=== PATIENT | female | born 1955 | race Caucasian/White ===

== ENCOUNTER 2017-01-03 06:09 | Day surgery (SDC) | payer OTHER ==
[2017-01-03] VITALS (9 sets, daily range): BP systolic 107–133; BP diastolic 50–58; PULSE 79–105; RESP 11–16; O2SAT 94–100
[~2017-01-03] VITALS: Ht 162.6 cm; Wt 87.4 kg
[~2017-01-03 06:09] MED LIST: ACYC400T2 PO; ALBU8.5H2 INHALATION; AMT25T PO; ATRINH INH; CYCL10TA9 PO; FLUO20CA25 PO; GABA-502 PO; HYDR-4003 PO; IPRA3AMP IH; LISI40TA PO; Lactated Ringer's 1,000 ML IV SCH; MELO-259 PO; NPR500T PO; OMEP40CA36 PO; PRAM0.5T3 PO; TRAM50TA2 PO
[2017-01-03] MEDS ORDERED: Propofol 10,000 mCg/mL 20 mL Inj ONE (06:10)
[2017-01-03] MEDS ORDERED: Dexamethasone 4 mg/mL Inj ONE (06:10)
[2017-01-03] MEDS ORDERED: Ondansetron 2 mg/mL 2 mL Inj ONE (06:10)
[2017-01-03] MEDS ORDERED: Succinylcholine Chloride 20 mg/mL 5 mL Inj ONE (06:10)
[2017-01-03] MEDS ORDERED: fentaNYL-PF 50 mCg/mL 2 mL Inj ONE (06:10)
[2017-01-03] MEDS ORDERED: Rocuronium 10 mg/mL 5 mL Inj ONE (06:10)
[2017-01-03] MEDS ORDERED: HYDROmorphone 2 mg/mL Inj ONE (06:10)
[2017-01-03] MEDS ORDERED: Lactated Ringer's 1,000 ML IV ONE (07:10)
[2017-01-03] MEDS ORDERED: Lidocaine 1%-Epi 1:100,000 20 mL Inj INFILTRATE ONE (07:11)
[2017-01-03] MEDS ORDERED: HYDROcodone-APAP 7.5-325 mg Tablet PO PRN ×3 (07:25→09:20)
--- NOTE | 2017-01-03 07:26 | PCM.HPANE ---
Patient Data Surgeon Admitting Provider: Attending Provider:Hero Ware DO Primary Care Physician:Elmer Brennan MD Other Provider: Reason for Visit Left Thumb Metacarpal Arthritis And Hyperextension Ht/WT & BMI Height (Feet): 5 Height (Inches): 6 Weight (Kilograms): 87.18 Body Mass Index 30.00 Allergies Coded Allergies: No Known Allergies (Unverified , 07/31/16) Past Anesthesia History Anesthesia History: Denies:: Abnormal Airway, Anesthesia Reactions, Difficult Intubation, Fam Anesthesia Reaction, Fam Malignant Hypertherm, Malignant Hyperthermia Diabetes History Hx Diabetes?: No MRSA MRSA: No Medications Hypertension Medication: No Home Meds Incl Beta Hailey: No Reported Medications Tramadol 50 Mg Msruae48-252 Mg PO Q8H PRN For Pain Ref 0 12/31/16 Albuterol HFA (Proair HFA)8.5 Gm Hfa.aer.ad2 Puffs INHALATION Q4H PRN For Shortness of Breath #1 INHALER 12/31/16 Omeprazole 40 Mg Capsule.dr40 Mg PO DAILY Ref 0 12/31/16 Naproxen 500 Mg Fqc785 Mg PO BID PRN For Pain Ref 0 12/31/16 Pramipexole Dihydrochloride (Mirapex)0.5 Mg Tablet0.25-0.5 Mg PO HS 12/31/16 Meloxicam 7.5 Mg Tablet7.5 Mg PO BID 30 Days Ref 0 12/31/16 Lisinopril 40 Mg Nlnafu75 Mg PO DAILY 30 Days Ref 0 12/31/16 Ipratropium/Albuterol Sulfate (Iprat-Albut 0.5-3(2.5) mg/3 mL Inhalant Soln)3 Ml Ampul.neb3 Ml IH Q6 Ref 0 12/31/16 Hydrocodone-Acetaminophen 5-325 mg 1 Each Tablet1 Tablet PO TID PRN For Pain Ref 0 12/31/16 Gabapentin 300 Mg Capsule1,200 Mg PO TID Ref 0 12/31/16 Fluoxetine 20 Mg Cvzmdvf44 Mg PO DAILY Ref 0 12/31/16 Cyclobenzaprine 10 Mg Mbwseq82 Mg PO DAILY Ref 0 12/31/16 Ipratropium [place] (Atrovent HFA)200 Puff/12.9 Gm Inhaler2 Puff INH QID #1 INH Ref 0 12/31/16 Amitriptyline 25 Mg Ljt02-26 Mg PO HS Ref 0 12/31/16 Acyclovir 400 Mg Ennnfj301 Mg PO BID Ref 0 12/31/16 Discontinued Reported Medications Tramadol 50 Mg Thjurk41-320 Mg PO Q8H PRN For Pain Ref 0 07/31/16 Albuterol HFA (Proair HFA)8.5 Gm Hfa.aer.ad2 Puffs INHALATION Q4H PRN PRN #1 INHALER 07/31/16 Omeprazole 40 Mg Capsule.dr40 Mg PO DAILY Ref 0 07/31/16 Naproxen 500 Mg Miw761 Mg PO BID PRN For Pain Ref 0 07/31/16 Pramipexole Dihydrochloride (Mirapex)0.25 Mg Tablet0.25-0.5 Mg PO QPM 07/31/16 Meloxicam 7.5 Mg Tablet7.5 Mg PO BID 30 Days Ref 0 07/31/16 Lisinopril 20 Mg Mcpxxl59 Mg PO DAILY 30 Days Ref 0 07/31/16 Ipratropium/Albuterol Sulfate (Iprat-Albut 0.5-3(2.5) mg/3 mL Inhalant Soln)3 Ml Ampul.neb3 Ml IH Q6 Ref 0 07/31/16 Hydrocodone-Acetaminophen 5-325 mg 1 Each Tablet1 Tablet PO TID PRN For Pain Ref 0 07/31/16 Fluoxetine 20 Mg Oatpgmh54 Mg PO DAILY Ref 0 07/31/16 Cyclobenzaprine 10 Mg Ramvbk71 Mg PO TID PRN Spasm 07/31/16 Ipratropium [place] (Atrovent HFA)200 Puff/12.9 Gm Inhaler2 Puff INH QID #1 INH Ref 0 07/31/16 Amitriptyline 25 Mg Krr73-81 Mg PO HS Ref 0 07/31/16 Acyclovir 400 Mg Hinvxn417 Mg PO BID Ref 0 07/31/16 History History of ENT Problems?: No HEENT History: Denies:: Abnormal Airway Cataracts Difficult Intubation Dysphagia Glaucoma Hearing Problem Sinus Problem Teeth Condition: Missing Teeth Hx of Heart Problems?: Yes Cardiovascular History: Denies:: AICD Abdominal Aortic Aneurism Cardiac Surgery Heart Murmur Hypertension Irregular Heartbeat Pacemaker Hx of Respiratory Problem?: Yes Respiratory History: Positive for:: COPD Use of C-PAP Machine Use of Inhalers / NEBS Denies:: Asthma Emphysema Oxygen Administration Pneumonia Tuberculosis Hx Neurologic Problems?: Yes Neurological History: Positive for:: Dizziness (when standing up, ) Denies:: CVA Headaches Multiple Sclerosis Parkinson's Disease Seizures TIA Hx of GI Problems?: Yes Gastrointestinal History: Positive for:: Gastroesphageal Reflux (symptomatic) Heartburn Denies:: Cirrhosis Diverticulitis Gall Bladder Disease Gastrointestinal Bleeding Hepatitis Hiatal Hernia Liver Disease Rectal Bleeding Hx of Problems?: No Genitourinary History: Denies:: Kidney Stones Urinary Tract Infection Female Hx: Denies:: Currently (tubal ) Problems with Breasts? Skin History: Positive for:: History Skin Disorders? (bruises easily) Denies:: Pressure Ulcers Hx Musculoskeletal Problems?: Yes Musculoskeletal History: Positive for:: Fibromyalgia Musculoskeletal Trauma (left hand current admission problem, surgery here 2015) Osteoarthritis Denies:: Back Injury Hx of Psycho/Social Problems?: Yes Psycho Social History: Positive for:: Hx Depression Hx Surgeries?: Yes (tonsils, tubal, multiple hand surgery) Hx Any Other Health Problems?: Yes Other History: Denies:: Cancer Endocrine Disease Hospitalization Thyroid Disease History Blood Transfusions: Positive for:: Accept Blood Products? Denies:: Blood Transfusions Hx Diabetes: No Hx Alcohol Use: YesAlcoholic Drinks Per Day: rare- every few yearsHx Substance Use: NoHave You Smoked inLast 12 mo: No Stop/Bang S-Snoring: Do You Snore Loudly: Yes T-Tired: feel tired, fatigued: Yes O-Obsered: Observed not breath: No P-Blood Pressure: treated: Yes B- Body Mass Index > 35 kg/m2: No A- Age over 50: Yes N- Neck Large Circumference: No G- Gender Male: No IWL Total Score: 4 WIL Risk Assessment: High Risk, =/>3 Yes Risk Assessment Category Category 1A: Patient has history of documented sleep apnea, and HAS NOT received any narcotic, sedative or anesthesia administration during this stay. Category 1B: Patient has history of documented sleep apnea, and HAS received any narcotic , sedative or anesthesia administration during this stay Category 2: Patient has SUSPECTED Obstructive Sleep Apnea, and HAS received any narcotic , sedative or anesthesia administration during this stay. Category 3: Patient has SUSPECTED Obstructive Sleep Apnea and HAS NOT received narcotic, sedative or anesthesia administration during this stay. Category 4: Outpatient in Procedural Areas with known sleep apnea or who screen positive for High Risk via the STOP/BANG questionnaire. Exam Exam General Appearance: Alert, Oriented X3, Cooperative, No Acute Distress HEENT/AIRWAY: MP 1 Lungs: Clear to Auscultation, Normal Air Movement Heart: Exam Unremarkable, Regular Rate/Rhythm, No Murmurs/Rubs/Gallops Plan Impression Patient chart reviewed, patient interviewed and anesthestic plan with risks, benefits, and alternatives discussed, and informed consent obtained. NPO Status: 08/01@2130 ASA Physical Status: ASA3 Severe Disease Anesthetic Plan: GA Bene/Risks/Altern/Consents: Yes HP Complete Prior to Induction: Yes Bernard Soto MD Jan 03, 2017 07:02
[2017-01-03] MEDS ORDERED: Lactated Ringer's 500 ML IV PRN (07:41)
[2017-01-03] MEDS ORDERED: Lactated Ringer's 1,000 ML IV SCH (07:41)
[2017-01-03] MEDS ORDERED: EPHEDrine Sulfate 50 mg/mL Inj IVPUSH PRN (07:45)
[2017-01-03] MEDS ORDERED: hydrALAZINE 20 mg/mL Inj IVPUSH PRN (07:45)
[2017-01-03] MEDS ORDERED: Ondansetron 2 mg/mL 2 mL Inj IVPUSH PRN (07:45)
[2017-01-03] MEDS ORDERED: Labetalol 5 mg/mL 4 mL Inj IV PRN (07:45)
[2017-01-03] MEDS ORDERED: HYDROmorphone 1 mg/mL Inj IVPUSH PRN (07:45)
[2017-01-03] MEDS ORDERED: MetoCLOpramide 5 mg/mL 2 mL Inj IVPUSH PRN (07:45)
[2017-01-03] MEDS ORDERED: Atropine 0.4 mg/mL Inj IVPUSH PRN (07:45)
[2017-01-03] MEDS ORDERED: fentaNYL-PF 50 mCg/mL 2 mL Inj IVPUSH PRN (07:45)
[2017-01-03] MEDS ORDERED: Phenylephrine 10,000 mCg/mL Inj IVPUSH PRN (07:45)
[2017-01-03] MEDS: CeFAZolin Inj 2 GM in IV Premix 1 EACH IV ONE ×2 (08:06→08:07)
--- NOTE | 2017-01-03 10:20 | PCM.ANEP2 ---
Post Anesthesia Evaluation ASA/CMS Post Anesthesia VS in Patient's Normal Range?: Yes Resp Stable; Airway Patent?: Yes CV Function & Hydration Stable: Yes Mental Status Recovered?: Yes Pain control Satisfactory?: Yes N/V Control Satisfactory?: Yes Bernard Soto MD Jan 03, 2017 10:20
--- NOTE | 2017-01-03 10:20 | PCM.ANEP1 ---
Post Anesthesia Phase 1 PACU Phase 1 Assessment Vital Signs Vital Signs Date Time Temp Pulse Resp B/P Pulse Ox O2 Delivery O2 Flow Rate FiO2 01/03/17 10:10 36.3 79 14 107/51 95 Room Air 01/03/17 10:00 82 13 118/50 94 Room Air 01/03/17 09:55 36.2 89 16 114/52 99 Room Air 01/03/17 09:45 94 13 125/54 100 Nasal Cannula 2 01/03/17 09:35 100 15 126/55 97 Nasal Cannula 2 01/03/17 09:30 104 13 133/50 96 Nasal Cannula 2 01/03/17 09:25 105 13 133/56 96 Room Air 01/03/17 09:20 36.1 103 11 130/58 98 Simple Mask 8 01/03/17 07:09 36.0 85 16 125/56 97 Room Air 01/03/17 07:09 CPAP/BIPAP Anesthetic Administered: GA Level of Alertness: Awake, talking AREVALO's with Equal Strength: Yes Pain: No Nausea or Vomiting: No Oxygen Delivery: Simple Mask Lungs: Clear to Auscultation, Normal Air Movement Bernard Soto MD Jan 03, 2017 10:20
--- NOTE | 2017-01-03 11:03 | OP ---
[address] [address] OPERATIVE REPORT PATIENT: BLUE ARENAS : 1955 MR#: [id number] ADMIT: 01/03/2017 JOB ID: [id number] DATE OF SURGERY: 01/03/2017 PREOPERATIVE DIAGNOSIS(ES): Left thumb metacarpophalangeal instability with arthritis. POSTOPERATIVE DIAGNOSIS(ES): Left thumb metacarpophalangeal instability with arthritis. PROCEDURE: Left thumb metacarpophalangeal arthrodesis. SURGEON: Hero Ware D.O. ANESTHESIA: General. 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 She had failed conservative treatment and she underwent a first CMC arthroplasty with FCR tendon transfer and volar capsular dehiscence of the MCP joint. The patient to rehab from the CMC arthroplasty and had decreased pain to the CMC joint, but continued to have significant compensatory MCP hyperextension leading to further adduction the first metacarpal. This limited her rehab potential and with continued pain now mainly localized to the MCP joint, I discussed with the patient proceeding with a MCP fusion. She understood the risks include, but not limited to, neurovascular injury, tendon injury, infection, failure of fusion, stiffness, persistent pain which may require further intervention. The patient had all questions answered. Consent was signed and placed in the chart. PROCEDURE IN DETAIL: The patient was brought to the operative suite and placed supine on the operating table. Surgical time-out was performed. Everyone in the room was in agreement. After appropriate anesthesia was obtained, a left upper arm tourniquet was applied and the left upper extremity was prepped and draped in a sterile fashion. Left upper extremity was then exsanguinated and tourniquet inflated to 250 mmHg. A longitudinal incision was made centered overlying the dorsal aspect of the thumb metacarpophalangeal joint. The interval between the EPB and EPL was entered longitudinally and the capsule next incised. The joint was then hyperflexed to expose the base of the proximal phalanx as well as the first metacarpal head. A rongeur as well as a bur was utilized to debride the remaining cartilage surface from the joint and to contour a cup and cone configuration to the first MCP joint. Following removal of any osteophytes and cartilage, the thumb was placed into a position of about 15 degrees of flexion, 5 degrees of abduction and 5 degrees of pronation. A 0.045 K-wire was then placed in a transverse fashion across the proximal phalanx about 1 cm distal to the joint to create a hole for the 22-gauge steel wire. The K-wire was removed and a 22-gauge steel wire was then passed through the prepared hole. Next two 0.045-inch K-wires were advanced across the first metacarpal head into the proximal phalanx along its medullary canal. Two parallel K-wires were utilized. Both were 0.045 inch K-wires. The position of the K-wires were verified under fluoroscopy. The 22-gauge wire was then wrapped around the two 0.045 inch K-wires in a tension band configuration. The 22-gauge wire was tensioned and then cut short with the free end bent towards the bone to prevent any soft tissue irritation. The two 0.045-inch K-wires were then cut short just proud of the tension band wire proximally. Multiple views of fluoroscopy were utilized to verify acceptable position of the first MCP arthrodesis as well as appropriate position of the hardware. Copious irrigation was performed followed by closure of the overlying split between the EPB and EPL with 5-0 nylon and a 5-0 nylon closure for the skin. The patient was then placed in the well-padded, well-molded thumb spica splint. ESTIMATED BLOOD LOSS: Less than 1 cc. COMPLICATIONS: None. DISPOSITION: The patient tolerated the procedure well. Anesthesia was reversed. The patient was transferred back to recovery. IMPLANTS: Two 0.045 inch K-wires and a 22-gauge steel wire. POSTOPERATIVE PLAN: The patient will follow up in the office in two weeks. She will be transitioned either back into the previous thumb spica brace she had fashioned or will be sent back to therapy to have a new thumb spica brace fashioned in the appropriate position to provide some protection to the MCP arthrodesis.
== END 2017-01-03 23:59 | disposition home or self-care (01) ==
LOC: SAS 06:09
PROVIDERS: ATTEND Orthopaedic Surgery
PROC: 0RGV04Z Fusion of Left Metacarpophalangeal Joint with Internal Fixation Device, Open Approach (ICD-10-PCS; principal; 2017-01-03 08:00)
DX: M18.32 Unilateral post-traumatic osteoarthritis of first carpometacarpal joint, left hand (principal); M25.342 Other instability, left hand; G47.33 Obstructive sleep apnea (adult) (pediatric); I10 Essential (primary) hypertension; M79.7 Fibromyalgia; K21.9 Gastro-esophageal reflux disease without esophagitis; J44.9 Chronic obstructive pulmonary disease, unspecified
CPT/HCPCS: 26850; 73140; 76000; J0330; J0690; J1100; J1170; J2405; J3010; J7120

== ENCOUNTER 2017-05-09 10:03 | Day surgery (SDC) | payer OTHER ==
[~2017-05-09] VITALS: Ht 165.1 cm; Wt 87.6 kg
[~2017-05-09 10:03] MED LIST changes: +CeFAZolin 2 Gm/50 mL D5W IV Premix IV ONE; -GABA-502 PO; +GABA300C PO; +Lactated Ringer's 1,000 ML IV ONE
[2017-05-09] MEDS ORDERED: Propofol 10,000 mCg/mL 20 mL Inj ONE (10:04)
[2017-05-09] MEDS ORDERED: fentaNYL-PF 50 mCg/mL 2 mL Inj ONE (10:04)
[2017-05-09 10:24] VITALS: BP 128/58; PULSE 76; RESP 14; O2SAT 99
[2017-05-09] MEDS ORDERED: Lactated Ringer's 1,000 ML IV ONE (10:32)
[2017-05-09] MEDS ORDERED: HYDROcodone-APAP 5-325 mg Tablet PO PRN (14:05)
[2017-05-09] MEDS ORDERED: Lidocaine 1%-Epi 1:100,000 20 mL Inj NERVEBLOCK ONE (15:06)
[2017-05-09] MEDS ORDERED: fentaNYL-PF 50 mCg/mL 2 mL Inj IVPUSH PRN (15:10)
[2017-05-09] MEDS ORDERED: MetoCLOpramide 5 mg/mL 2 mL Inj IVPUSH PRN (15:10)
[2017-05-09] MEDS ORDERED: Lactated Ringer's 500 ML IV PRN (15:10)
[2017-05-09] MEDS ORDERED: Dexamethasone 4 mg/mL Inj IVPUSH PRN (15:10)
[2017-05-09] MEDS ORDERED: Lactated Ringer's 1,000 ML IV SCH (15:10)
[2017-05-09] MEDS ORDERED: Phenylephrine 10,000 mCg/mL Inj IVPUSH PRN (15:10)
[2017-05-09] MEDS ORDERED: Ondansetron 2 mg/mL 2 mL Inj IVPUSH PRN (15:10)
[2017-05-09] MEDS ORDERED: EPHEDrine Sulfate 50 mg/mL Inj IVPUSH PRN (15:10)
[2017-05-09] MEDS ORDERED: HYDROmorphone 1 mg/mL Inj IVPUSH PRN (15:10)
[2017-05-09 15:35] VITALS: BP 131/53; PULSE 90; RESP 16; O2SAT 99
--- NOTE | 2017-05-09 15:51 | PCM.HPANE ---
Patient Data Surgeon Admitting Provider: Attending Provider:Hero Ware DO Primary Care Physician:Elmer Brennan MD Other Provider:Vazquez Glass Anesthesia Reason for Visit Left Thumb Hardware Irritation Ht/WT & BMI Height (Feet): 5 Height (Inches): 6 Weight (Kilograms): 88.9 Body Mass Index 31.00 Allergies Coded Allergies: No Known Allergies (Unverified , 07/31/16) Past Anesthesia History Anesthesia History: Denies:: Abnormal Airway, Anesthesia Reactions, Difficult Intubation, Fam Anesthesia Reaction, Fam Malignant Hypertherm, Malignant Hyperthermia Diabetes History Hx Diabetes?: No MRSA MRSA: No Medications Reported Medications Gabapentin (Neurontin)300 Mg Lxvaujt362 Mg PO DAILY 30 Days Ref 0 05/06/17 Tramadol 50 Mg Bqoytd55-269 Mg PO Q8H PRN For Pain Ref 0 12/31/16 Albuterol HFA (Proair HFA)8.5 Gm Hfa.aer.ad2 Puffs INHALATION Q4H PRN For Shortness of Breath #1 INHALER 12/31/16 Omeprazole 40 Mg Capsule.dr40 Mg PO DAILY Ref 0 12/31/16 Naproxen 500 Mg Ywa461 Mg PO BID PRN For Pain Ref 0 12/31/16 Pramipexole Dihydrochloride (Mirapex)0.5 Mg Tablet0.25-0.5 Mg PO HS 12/31/16 Meloxicam 7.5 Mg Tablet7.5 Mg PO BID 30 Days Ref 0 12/31/16 Lisinopril 40 Mg Hrrrhu81 Mg PO DAILY 30 Days Ref 0 12/31/16 Ipratropium/Albuterol Sulfate (Iprat-Albut 0.5-3(2.5) mg/3 mL Inhalant Soln)3 Ml Ampul.neb3 Ml IH Q6 Ref 0 12/31/16 Hydrocodone-Acetaminophen 5-325 mg 1 Each Tablet1 Tablet PO TID PRN For Pain Ref 0 12/31/16 Fluoxetine 20 Mg Ijenzrp54 Mg PO DAILY Ref 0 12/31/16 Cyclobenzaprine 10 Mg Imqaqs21 Mg PO DAILY Ref 0 12/31/16 Ipratropium [place] (Atrovent HFA)200 Puff/12.9 Gm Inhaler2 Puff INH QID #1 INH Ref 0 12/31/16 Amitriptyline 25 Mg Ypr65-28 Mg PO HS Ref 0 12/31/16 Acyclovir 400 Mg Szzbef740 Mg PO BID Ref 0 12/31/16 Discontinued Reported Medications Gabapentin 300 Mg Capsule1,200 Mg PO TID Ref 0 12/31/16 History History of ENT Problems?: No HEENT History: Denies:: Abnormal Airway Cataracts Difficult Intubation Dysphagia Hearing Problem Sinus Problem Denture Type: None Teeth Condition: Within Normal Limits Hx of Heart Problems?: Yes Cardiovascular History: Denies:: AICD Abdominal Aortic Aneurism Cardiac Surgery Heart Murmur Hypertension Irregular Heartbeat Pacemaker Hx of Respiratory Problem?: Yes Respiratory History: Positive for:: COPD Use of C-PAP Machine Denies:: Asthma Emphysema Oxygen Administration Pneumonia Tuberculosis Hx Neurologic Problems?: Yes Neurological History: Positive for:: Dizziness (when standing up, ) Denies:: CVA Headaches Multiple Sclerosis Parkinson's Disease Seizures Hx of GI Problems?: Yes Hx of Problems?: No Genitourinary History: Denies:: Kidney Stones Urinary Tract Infection Female Hx: Denies:: Currently (tubal ) Problems with Breasts? Skin History: Positive for:: History Skin Disorders? (bruises easily) Denies:: Pressure Ulcers Hx Musculoskeletal Problems?: Yes Musculoskeletal History: Positive for:: Musculoskeletal Trauma (left hand current admission problem, surgery here 01/2017) Denies:: Back Injury Hx of Psycho/Social Problems?: Yes Psycho Social History: Positive for:: Hx Depression Hx Surgeries?: Yes (tonsils, tubal, multiple hand surgery) Hx Any Other Health Problems?: Yes Other History: Denies:: Cancer Endocrine Disease Hospitalization Thyroid Disease History Blood Transfusions: Denies:: Blood Transfusions Hx Diabetes: No Hx Alcohol Use: YesHx Substance Use: No Smoking Status: Former Smoker Have You Smoked inLast 12 mo: No Stop/Bang P-Blood Pressure: treated: Yes B- Body Mass Index > 35 kg/m2: No A- Age over 50: Yes N- Neck Large Circumference: No G- Gender Male: No Risk Assessment Category Category 1A: Patient has history of documented sleep apnea, and HAS NOT received any narcotic, sedative or anesthesia administration during this stay. Category 1B: Patient has history of documented sleep apnea, and HAS received any narcotic , sedative or anesthesia administration during this stay Category 2: Patient has SUSPECTED Obstructive Sleep Apnea, and HAS received any narcotic , sedative or anesthesia administration during this stay. Category 3: Patient has SUSPECTED Obstructive Sleep Apnea and HAS NOT received narcotic, sedative or anesthesia administration during this stay. Category 4: Outpatient in Procedural Areas with known sleep apnea or who screen positive for High Risk via the STOP/BANG questionnaire. Exam Exam General Appearance: Alert, Oriented X3, Cooperative, No Acute Distress HEENT/AIRWAY: MP 2 Lungs: Clear to Auscultation Heart: Exam Unremarkable Plan Impression Patient chart reviewed, patient interviewed and anesthestic plan with risks, benefits, and alternatives discussed, and informed consent obtained. ASA Physical Status: ASA2 Mod Systemic Disease Anesthetic Plan: MAC Bene/Risks/Altern/Consents: Yes HP Complete Prior to Induction: Yes Isai Yusuf MD May 09, 2017 08:45
--- NOTE | 2017-05-09 15:52 | PCM.ANEP1 ---
Post Anesthesia PACU Phase 1 Assessment Vital Signs Vital Signs Date Time Temp Pulse Resp B/P Pulse Ox O2 Delivery O2 Flow Rate FiO2 05/09/17 10:24 36.6 76 14 128/58 99 Room Air Anesthetic Administered: MAC Level of Alertness: Awake, talking AREVALO's with Equal Strength: Yes Pain: No Nausea or Vomiting: No CV Function & Hydration Stable: Yes Airway Device: Oxygen Delivery: Room Air Lungs: Clear to Auscultation Dermatome Level: Full Sensation PACU Phase 2 Assessment Complications: No Patient Instructions Provided: N/A Isai Yusuf MD May 09, 2017 15:52
[2017-05-09 16:15] VITALS: BP 119/50; PULSE 83; RESP 16; O2SAT 98
--- NOTE | 2017-05-10 04:48 | OP ---
[address] [address] OPERATIVE REPORT PATIENT: BLUE ARENAS : 1955 MR#: [id number] ADMIT: 05/09/2017 JOB ID: [id number] DATE OF SURGERY: 05/09/2017 PREOPERATIVE DIAGNOSIS(ES): Left thumb retained hardware. POSTOPERATIVE DIAGNOSIS(ES): Left thumb retained hardware. PROCEDURE: Removal of left thumb deep hardware. SURGEON: Hero Ware D.O. ANESTHESIA: General. BRIEF HISTORY: The patient is a pleasant 62-year-old female who originally underwent a first CMC arthroplasty for posttraumatic first CMC arthritis with a volar MCP capsulodesis. The patient did well in regards to her rehabilitation but demonstrated further hyperextension of the MCP joint and thus with pain now localized to the MCP joint and significant laxity, I discussed with her proceeding with a MCP arthrodesis. She had tolerated that procedure well. Several months later, her hardware, consisting of a tension band, started back out. One was easily removed in the office but the second pin, as well as the tension band, was still remaining and painful. The MCP joint itself was not painful and demonstrated some consolidation on the radiographs. Discussed with the patient the risks, benefits, and complications to proceed with hardware removal of the left thumb hardware that was remaining. She understood the risks include, but not limited to, neurovascular injury, tendon injury, infection, failure of fixation, stiffness, persistent pain, all of which may require further intervention. The patient had all questions answered. Consent was signed and placed in chart. PROCEDURE DETAILS: The patient was brought to the operative suite and placed supine on the operating table. Surgical time-out performed. Everyone was in agreement. After appropriate anesthesia was obtained, a left upper arm tourniquet was applied and the left upper extremity was prepped and draped in a sterile fashion. Left upper extremity then exsanguinated and the tourniquet inflated to 250 mmHg. The patient's previous dorsal incision overlying the thumb MCP joint was entered. Dissection was carried down to the overlying extensor bañuelos which was split in line with the previous central split. The splint was followed along longitudinally. The remaining longitudinal pin was easily removed. The tension band was identified and cut in two places and then removed in two pieces. Copious irrigation was performed. Radiographs were obtained demonstrating that all hardware had been removed. The extensor bañuelos splint was then repaired with 5-0 nylon in a [id number] interrupted fashion followed by a running 5-0 nylon for the skin. The patient was then placed into a well-padded well-molded thumb spica splint. ESTIMATED BLOOD LOSS: Less than 1 cc. COMPLICATIONS: None. DISPOSITION: The patient tolerated the procedure well. Anesthesia was reversed and the patient was transferred back to recovery. SPECIMENS: Tension band wire taken out in two pieces as well as a longitudinal K-wire that was also removed. POSTOPERATIVE PLAN: The patient will follow up in my office in two weeks. We will remove the patient's sutures at that time and have her start working on range of motion and scar mobilization.
== END 2017-05-09 23:59 | disposition home or self-care (01) ==
LOC: SAS 10:03
PROVIDERS: ATTEND Orthopaedic Surgery
PROC: 0PP Upper Bones, Removal (ICD-10-PCS; principal; 2017-05-09 13:15)
DX: T84.84XA Pain due to internal orthopedic prosthetic devices, implants and grafts, initial encounter (principal); Z98.1 Arthrodesis status; I10 Essential (primary) hypertension; F32.9 Major depressive disorder, single episode, unspecified; G47.33 Obstructive sleep apnea (adult) (pediatric); M79.7 Fibromyalgia; K21.9 Gastro-esophageal reflux disease without esophagitis; G25.81 Restless legs syndrome; J44.9 Chronic obstructive pulmonary disease, unspecified; Z87.891 Personal history of nicotine dependence
CPT/HCPCS: 20680; J0690; J2250; J3010; J7120